=== PATIENT | female | born 1985 | race Caucasian/White ===

== ENCOUNTER 2017-11-09 09:13 | Outpatient (CLI) | payer BC | END 2017-11-09 09:14 | disposition home or self-care (01) | LOC: BICULT 09:13 | PROVIDERS: ATTEND Family Medicine | DX: E03.9 Hypothyroidism, unspecified (principal); M62.08 Separation of muscle (nontraumatic), other site; Q79.59 Other congenital malformations of abdominal wall | CPT/HCPCS: 76705 ==

== ENCOUNTER 2017-12-13 14:37 | Outpatient (CLI) | payer BC ==
[2017-12-13 15:34] LABS: #Eosinphils 0.1 thou/uL (0.0-0.7); #Lymphocytes 2.8 thou/uL (1.20-3.40); #Monocytes 0.5 thou/uL (0.11-0.59); #Neutrophils 4.8 thou/uL (1.40-6.50); %Basophils 0.3 % (0.0-1.0); %Eosinophils 1.7 % (0.0-10.0); %Lymphocytes 33.3 % (21.0-51.0); %Monocytes 5.8 % (0.0-10.0); %Neutrophils 58.8 % (42.0-75.0); Hemoglobin 14.5 g/dL (12.0-16.0); Mean Corpuscular HGB CONC 35.3 g/dL (32.0-36.0); Mean Corpuscular Hemoglobin 29.8 pg (27.0-31.0); Mean Corpuscular Volume 84.4 fl (81.0-99.0); Mean Platelet Volume 7.2 fL (7.4-10.4); Platelet Count 327 thou/uL (130-400); RBC Distribution Width 11.5 % (11.5-14.5); Red Blood Cell (RBC) Count 4.86 mill/uL (4.20-5.40); White Blood Cell (WBC) Count 8.2 thou/uL (4.8-10.8)
[2017-12-13 15:36] LABS: BHCG - Serum Negative (NEGATIVE); Pregs Control Background? CLEAR/WHITE (CLR/WHITE); Pregs Control Bar Appear? YES (CONTROL BAR)
[2017-12-13 15:53] LABS: Anion Gap 15 mmol/L (10-20); BUN (Urea Nitrogen) 12 mg/dL (7.0-18.7); Calc. Creatinine Clearance 0 mL/min (70-130); Calcium 9.8 mg/dL (7.8-10.44); Carbon Dioxide 24 mmol/L (22-29); Chloride 105 mmol/L (98-107); Estimated GFR-MDRD 83; Glucose 88 mg/dL (70-105); Potassium 4.1 mmol/L (3.5-5.1); Sodium 140 mmol/L (136-145)
== END 2017-12-13 14:38 | disposition home or self-care (01) ==
LOC: LABBT 14:37
PROVIDERS: ATTEND Specialist
DX: Z01.812 Encounter for preprocedural laboratory examination (principal); K42.9 Umbilical hernia without obstruction or gangrene
CPT/HCPCS: 80048; 84703; 85025

== ENCOUNTER 2017-12-23 06:08 | Day surgery (SDC) | payer BC ==
[2017-12-13 14:57] VITALS: BMI 29.3
--- NOTE | 2017-12-19 09:27 | HP ---
HISTORY OF PRESENT ILLNESS: Shyann Bajwa is a 32-year-old female, 171 pounds, 64 inches, 29.3 BM I, 4, para 5, delivering twins, [age] years of age, 7 and 5 years of age and 9-year-old twins w ho presents with an umbilical hernia that is painful to her. She has tried to lose her we ight, but has had difficulty doing this. She stopped smoking over a year ago. She has quit drinking carbonated beverages. She has tried to eat right, but is having trouble losing her weigh t. She would like to be about 130 pounds. 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 She was seeing ano ther surgeon regarding umbilical hernia which she was surprised to find that she had. She has been t old she has diastasis recti. Her work adjustment instructor who delivered her last child has moved out of town and she informs me that an ultrasound performed in the office reveals changes communicated to her as akanksha stasis recti. These changes extend from below the umbilicus to above, she was told that to tend to t his problem would improve her abdominal appearance and decrease her pain and then she could work on w eight loss afterwards. ALLERGIES: PENICILLIN products. TOBACCO: None. ALCOHOL: None. PAST SURGICAL HISTORY: Tonsillectomy, 4 C-sections. PAST MEDICAL HISTORY: Noncontributory. REVIEW OF SYSTEMS: Ten point noncontributory. PHYSICAL EXAMINATION: VITAL SIGNS: Weight 171 pounds, 64 inches, 29.38 BMI, 131/50, 93 heart rate, 97.3 degrees. HEENT: Unremarkable. LUNGS: Clear to auscultation. CARDIAC: Regular rate and rhythm without murmur or gallop. ABDOMEN: Soft, nontender, slightly protuberant. Umbilical hernia, reducible. Defect approximately 2 cm. Lying Valsalva and sit up position I cannot appreciate a true diastasis recti. EXTREMITIES: Unremarkable. No edema. NEUROLOGIC: Intact. LYMPH: No lymphadenopathy in neck, groins, axilla. ASSESSMENT AND PLAN: Umbilical hernia. We will plan mesh repair and will evaluate her intraoperativ [place] to plan diastasis recti repair, possibly if indicated. She understands the risk and benefits inc luding infection, bleeding, reoperation, recurrence of her diastasis recti if present and consents. She understands I cannot guarantee that durability of a diastasis recti repair if performed. She und erstands she will need to make continued dietary changes and efforts and activity lifestyle changes t o ensure weight reduction that surgery will not result in weight reduction or appearance of her abdom inal protuberance. : 1985
[2017-12-23] MEDS ORDERED: Scopolamine 1.5 mg/72 hour Patch ONE (06:24)
[2017-12-23] MEDS ORDERED: Ketorolac Tromethamine 30 MG/ML VIAL ONE (06:25)
[2017-12-23] MEDS ORDERED: Fentanyl 250 MCG/5 ML VIAL ONE (07:04)
[2017-12-23] MEDS ORDERED: Levofloxacin 500 mg/D5W 100 ml Premix Bag ONE (07:06)
[2017-12-23] MEDS ORDERED: Bupivacaine/Epinephrine 0.25% 30 ML VIAL ONE ×2 (07:38→08:47)
[2017-12-23] MEDS ORDERED: Fentanyl 100 MCG/2 ML VIAL ONE (11:18)
--- NOTE | 2017-12-23 11:25 | OP ---
DATE OF PROCEDURE: 12/23/2017 PREOPERATIVE DIAGNOSIS: Umbilical hernia, diastasis recti. POSTOPERATIVE DIAGNOSIS: Umbilical hernia, diastasis recti. PROCEDURE: Robotic repair of umbilical hernia with imbrication of fascia for diastasis recti, 9 cm r ound Ventralight mesh, reinforcement of primary fascial closure. SURGEON: Dr. Jeronimo Zuniga ANESTHESIA: General. Local 0.5% Marcaine with epinephrine, 30 mL, and 0.25% Marcaine with epinephri ne, 20 mL used. DESCRIPTION OF PROCEDURE: The patient was taken to the operating room where under general anesthesia in the supine position, abdomen was prepared with ChloraPrep, draped in routine fashion. Local anes thetic infiltrated into the skin and subcutaneous tissue about each port site. A subxiphoid incision made and 11 port placed after pneumoperitoneum to 15 mmHg obtained with the Veress needle. There wa s falciform ligament surrounding the port and the lateral subcostal incision made right and left, and 8 mm ports placed and then laparoscope placed through these ports and then supplemental 5 mm ports p laced under laparoscopic visualization in the right lateral abdomen, mid, and lower abdomen and lapar oscopic was inserted, taking down the falciform ligament about the port to allow visualization as I c ould not visualize this due to the dependent falciform. Once this was taken down, the robot was redo cked and robotic hernia undertaken. There is quite a bit of fatty tissue about the umbilicus taken d own with cautery energy source. The fascial defect was about 2 cm and fatty tissue cleared from this from the subcutaneous tissue and excised with the cautery. At this point, the fascial defect closed with 0 V-Loc suture. Once this was accomplished, the pneumoperitoneum was reduced to 11 mmHg and 0 V-Loc suture used to imbricate the fascia vertically about the umbilicus for about 8-10 cm. Once thi s was accomplished, the Ventralight mesh was rolled, placed into the abdominal cavity and secured cir cumferentially with 3-0 V-Loc suture. Once it was secured, the mesh was noted to lie in good positio n. The umbilicus closure was secured and pneumoperitoneum reduced. All instruments removed and unde r laparoscopic visualization of the subxiphoid, 11 mm port site and fascia approximated with 0 Vicryl GraNee needle. Pneumoperitoneum and all instruments removed and all skin incisions approximated wit h interrupted subdermal 4-0 Monocryl and DermaGlue applied.
[2017-12-23] MEDS ORDERED: HYDROcodone/Acetaminophen 5/325 mg Tablet ONE (12:51)
== END 2017-12-23 13:32 | disposition home or self-care (01) ==
LOC: SDC 06:08
PROVIDERS: ATTEND Specialist
PROC: 0WUF4JZ Supplement Abdominal Wall with Synthetic Substitute, Percutaneous Endoscopic Approach (ICD-10-PCS; principal; 2017-12-23)
DX: K42.9 Umbilical hernia without obstruction or gangrene (principal); Z87.891 Personal history of nicotine dependence; Z79.899 Other long term (current) drug therapy; Z88.0 Allergy status to penicillin
CPT/HCPCS: 96374; C1781; J0131; J1885; J1956; J3010

== ENCOUNTER 2018-10-22 20:50 | Emergency (ER) | payer BC, SELFPAY ==
--- NOTE | 2018-10-22 21:39 | RAD ---
TWO VIEWS CHEST: 10/22/18 HISTORY: Cough and congestion. Two views chest demonstrates the lungs to be well aerated. No evidence of active intrathoracic diseas e seen. No evidence of effusions, pneumonia, or pneumothorax seen. IMPRESSION: Unremarkable two views chest. POS: [facility]
== END 2018-10-22 22:50 | disposition home or self-care (01) ==
LOC: ERS 20:50
DX: J20.9 Acute bronchitis, unspecified (principal); E03.9 Hypothyroidism, unspecified; F41.9 Anxiety disorder, unspecified; F17.290 Nicotine dependence, other tobacco product, uncomplicated; Z79.899 Other long term (current) drug therapy
CPT/HCPCS: 71046

== ENCOUNTER 2020-05-20 10:05 | Outpatient (CLI) | payer OTHER ==
--- NOTE | 2020-05-20 13:54 | ULT ---
PELVIC ULTRASOUND INCLUDING TRANSABDOMINAL AND TRANSVAGINAL AND VASCULAR DUPLEX WITH COLOR AND SPECTR AL DOPPLER IMAGING: HISTORY: Irregular menses. FINDINGS: Uterus measures 9.3 x 5.8 x 4.7 cm. Endometrium 0.8 cm. Right ovary measures 3.3 x 2.9 x 2.4 cm. Left ovary 3.0 x 2.5 x 2.2 cm. No evidence for abnormal fluid collection. No intrauterine mass. Vascular flow documented to both ovaries. No evidence for ovarian torsion. IMPRESSION: Somewhat thickened endometrium at 0.8 cm. Borderline to minimally enlarged ovaries bilaterally. No focal mass or abnormal fluid collection. POS: [facility]
== END 2020-05-20 10:06 | disposition home or self-care (01) ==
LOC: BICULT 10:05
PROVIDERS: ATTEND Nurse Practitioner Family
DX: N92.6 Irregular menstruation, unspecified (principal); R93.89 Abnormal findings on diagnostic imaging of other specified body structures; N83.8 Other noninflammatory disorders of ovary, fallopian tube and broad ligament
CPT/HCPCS: 76856

== ENCOUNTER 2020-07-31 11:05 | Emergency (ER) | payer OTHER ==
[2020-07-31] MEDS ORDERED: Proparacaine 0.5% Opth 15 ML BOT ONE (11:19)
[2020-07-31] MEDS ORDERED: Fluorescein Opthalmic Strip ONE (11:19)
[2020-07-31] MEDS ORDERED: Boostrix 0.5 ML (Tdap) VIAL ONE (12:10)
== END 2020-07-31 13:41 | disposition home or self-care (01) ==
LOC: ERS 11:05
DX: S05.92XA Unspecified injury of left eye and orbit, initial encounter (principal); E03.9 Hypothyroidism, unspecified; F17.290 Nicotine dependence, other tobacco product, uncomplicated; W50.4XXA Accidental scratch by another person, initial encounter
CPT/HCPCS: 90471; 90715

== ENCOUNTER 2020-11-11 10:56 | Emergency (ER) | payer OTHER | END 2020-11-11 11:55 | disposition home or self-care (01) | LOC: ERS 10:56 | DX: H60.502 Unspecified acute noninfective otitis externa, left ear (principal); E03.9 Hypothyroidism, unspecified; F17.290 Nicotine dependence, other tobacco product, uncomplicated | CPT/HCPCS: 99282 ==

== ENCOUNTER 2020-12-18 21:04 | Emergency (ER) | payer OTHER, BC ==
[2020-12-18] MEDS ORDERED: Ondansetron ODT 4 MG TAB ONE (22:07)
[2020-12-18] MEDS ORDERED: Ketorolac Tromethamine 30 MG/ML VIAL ONE (22:07)
== END 2020-12-19 00:25 | disposition home or self-care (01) ==
LOC: ERS 21:04
DX: M25.572 Pain in left ankle and joints of left foot (principal); E03.9 Hypothyroidism, unspecified; F17.290 Nicotine dependence, other tobacco product, uncomplicated; Z79.899 Other long term (current) drug therapy; V86.99XA Unspecified occupant of other special all-terrain or other off-road motor vehicle injured in nontraffic accident, initial encounter
CPT/HCPCS: 96372; J1885; Q0162

== ENCOUNTER 2021-07-08 12:26 | Emergency (ER) | payer BC, MEDICAID ==
[2021-07-08] MEDS ORDERED: Ketorolac Tromethamine 30 MG/ML VIAL ONE (15:50)
== END 2021-07-08 16:15 | disposition home or self-care (01) ==
LOC: ERS 12:26
DX: M79.662 Pain in left lower leg (principal); R60.0 Localized edema; E03.9 Hypothyroidism, unspecified; F17.210 Nicotine dependence, cigarettes, uncomplicated; Z79.899 Other long term (current) drug therapy
CPT/HCPCS: 96372; J1885